=== PATIENT | female | born 1980 | race Caucasian/White ===

== ENCOUNTER 2016-12-13 19:43 | Emergency (ER) | payer MEDICAID ==
[2016-12-13 19:55] VITALS: BP 125/80
--- NOTE | 2016-12-13 20:54 | EDM.PDOC ---
ED HPI ENT - General Chief Complaint: ENT Problem Stated Complaint: THROAT Time Seen by Provider: 12/13/16 20:30 Source of Information: Reports: Patient History Limitations: Reports: No limitations - History of Present Illness INITIAL COMMENTS - FREE TEXT/NARRATIVE: c/o sorethroat and sinus problems since this am, No fever Associated Symptoms: Reports: no other symptoms - Related Data Allergies/ADRs: Allergies Allergy/AdvReac Type Severity Reaction Status Date / Time erythromycin base Allergy Hives Verified 12/13/16 19:56 hydromorphone HCl Allergy Airway Verified 12/13/16 19:56 [From Dilaudid] Tightness meperidine HCl [From Demerol] Allergy Rash Verified 12/13/16 19:56 methylprednisolone sodium Allergy Rash Verified 12/13/16 19:56 succinate [From Solu-Medrol] Penicillins Allergy Rash Verified 12/13/16 19:56 Home Meds: Home Meds Cyclobenzaprine [Flexeril] 10 mg PO Q6H PRN 03/07/16 [History] Hydrocodone/Acetaminophen [Hydrocodon-Acetaminophen 5-325] 1 each PO BID [History] Pantoprazole Sodium [Protonix] 20 mg PO DAILY 03/07/16 [History] Verapamil [Calan SR] 240 mg PO DAILY 03/07/16 [History] carBAMazepine [Carbamazepine] 200 mg PO QID PRN 03/07/16 [History] Cyanocobalamin (Vitamin B12) [Vitamin B12] 1,000 mcg PO DAILY 06/27/16 [History] Ergocalciferol (Vitamin D2) [Vitamin D2] 2,000 unit PO DAILY 06/27/16 [History] Loratadine [Claritin] 10 mg PO DAILY 06/27/16 [History] Past Medical History HEENT History: Reports: Impaired vision Cardiovascular History: Reports: None Respiratory History: Reports: None Gastrointestinal History: Reports: GERD Genitourinary History: Reports: None 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: Musculoskeletal History: Reports: Back pain, chronic Neurological History: Reports: Migraines, Other (see below) Other Neuro History: trigeminal neralgia Psychiatric History: Reports: Depression Endocrine/Metabolic History: Reports: None Hematologic History: Reports: None Immunologic History: Reports: None Oncologic (Cancer) History: Reports: None Dermatologic History: Reports: None - Infectious Disease History Infectious Disease History: Reports: Chicken pox - Past Surgical History HEENT Surgical History: Reports: Naso-sinus surgery Cardiovascular Surgical History: Reports: None Respiratory Surgical History: Reports: None Female Surgical History: Reports: None Social & Family History - Family History Family Medical History: Noncontributory - Tobacco Use Smoking Status *Q: Current Every Day Smoker Years of Tobacco use: 20 Packs/Tins Daily: 20 Used Tobacco, but Quit: No Second Hand Smoke Exposure: Yes - Caffeine Use Caffeine Use: Reports: Soda - Recreational Drug Use Recreational Drug Use: No ED ROS ENT - Review of Systems Review Of Systems: See Below Constitutional: Denies: fever, chills HEENT: Reports: Sinus problem (burning), Throat pain Respiratory: Reports: No Symptoms Cardiovascular: Reports: No symptoms GI/Abdominal: Reports: No symptoms : Reports: no symptoms Musculoskeletal: Reports: no symptoms Skin: Reports: no symptoms Neurological: Reports: No Symptoms ED EXAM, ENT - Physical Exam Exam: See Below Exam Limited By: No limitations General Appearance: alert, no apparent distress Ears: normal external exam, normal canal, normal TMs Nose: normal inspection. No: clear rhinorrhea, nasal discharge Mouth/Throat: Normal inspection Head: atraumatic, normocephalic Neck: normal inspection. No: lymphadenopathy (L), lymphadenopathy (R) Respiratory/Chest: no respiratory distress, lungs clear Cardiovascular: normal peripheral pulses, regular rate, rhythm GI/Abdominal: normal bowel sounds, soft, non tender Extremities: normal inspection, normal range of motion Neurological: alert, oriented, CN II-XII intact, normal cognition Psychiatric: normal affect Skin: Warm, Dry, Intact, Normal color Course - Vital Signs Last Recorded V/S: Last Vital Signs Temp 96.6 F 12/13/16 19:49 Pulse 109 H 12/13/16 19:49 Resp 18 12/13/16 19:49 BP 125/80 12/13/16 19:49 Pulse Ox 100 12/13/16 19:49 - Orders/Labs/Meds Orders: Active Orders 24 hr Category Date Time Status CULTURE STREP A CONFIRMATION [] Stat Lab 12/13/16 19:59 Results STREP SCRN A RAPID W CULT CONF [] Stat Lab 12/13/16 19:59 Results Departure - Departure Time of Disposition: 20:52 Disposition: Home, Self-Care 01 Condition: good Clinical Impression: Pharyngitis Instructions: Upper Respiratory Infection, Adult, [id number] Forms: ED Department Discharge Additional Instructions: alternate tylenol and ibuprofen every 4 hours as needed increase fluid intake humidification salt water gargle as needed follow up 2-3 days if not improving - My Orders Last 24 Hours: My Active Orders 12/13/16 19:59 CULTURE STREP A CONFIRMATION [RM] Stat STREP SCRN A RAPID W CULT CONF [] Stat - Assessment/Plan Last 24 Hours: My Active Orders 12/13/16 19:59 CULTURE STREP A CONFIRMATION [RM] Stat STREP SCRN A RAPID W CULT CONF [RM] Stat
== END 2016-12-13 20:58 | disposition home or self-care (01) ==
LOC: DL.ED 19:43
DX: J02.9 Acute pharyngitis, unspecified (principal); K21.9 Gastro-esophageal reflux disease without esophagitis; F32.9 Major depressive disorder, single episode, unspecified; F17.210 Nicotine dependence, cigarettes, uncomplicated; Z79.899 Other long term (current) drug therapy; Z88.1 Allergy status to other antibiotic agents; Z88.0 Allergy status to penicillin; Z88.5 Allergy status to narcotic agent
CPT/HCPCS: 87081; 87430; 99283

== ENCOUNTER 2017-09-12 19:15 | Emergency (ER) | payer MEDICAID ==
[2017-09-12] MEDS ORDERED: LORazepam 1 MG Tab PO ONE (19:16)
[2017-09-12 19:34] VITALS: BP 117/78
[2017-09-12] MEDS ORDERED: Ketorolac 30 MG/ML SDV IM ONE (19:58)
[2017-09-12] MEDS ORDERED: LORazepam 1 MG Tab ONE (19:59)
--- NOTE | 2017-09-12 20:03 | EDM.PDOC ---
ED HPI GENERAL MEDICAL PROBLEM - General Chief Complaint: Headache Stated Complaint: MIGRAINE 4 DAYS [id number] Time Seen by Provider: 09/12/17 19:59 Source of Information: Reports: Patient History Limitations: Reports: No Limitations - History of Present Illness INITIAL COMMENTS - FREE TEXT/NARRATIVE: states has h/o cluster NARANJO and last time was Tx with IM toradol. denies vomiting. Treatments ASSISTANT GENERAL MANAGER: Reports: Acetaminophen, NSAIDS Headache Pain Score (Numeric/FACES): 8 - Related Data Allergies Allergy/AdvReac Type Severity Reaction Status Date / Time erythromycin base Allergy Hives Verified 09/12/17 19:34 hydromorphone HCl Allergy Airway Verified 09/12/17 19:34 [From Dilaudid] Tightness meperidine HCl [From Demerol] Allergy Rash Verified 09/12/17 19:34 methylprednisolone sodium Allergy Rash Verified 09/12/17 19:34 succinate [From Solu-Medrol] Penicillins Allergy Rash Verified 09/12/17 19:34 Home Meds: Home Meds Cyclobenzaprine [Flexeril] 10 mg PO Q6H PRN 03/07/16 [History] Hydrocodone/Acetaminophen [Hydrocodon-Acetaminophen 5-325] 1 each PO BID [History] Pantoprazole Sodium [Protonix] 20 mg PO DAILY 03/07/16 [History] Verapamil [Calan SR] 240 mg PO DAILY 03/07/16 [History] carBAMazepine [Carbamazepine] 200 mg PO QID PRN 03/07/16 [History] Cyanocobalamin (Vitamin B12) [Vitamin B12] 1,000 mcg PO DAILY 06/27/16 [History] Ergocalciferol (Vitamin D2) [Vitamin D2] 2,000 unit PO DAILY 06/27/16 [History] Loratadine [Claritin] 10 mg PO DAILY 06/27/16 [History] Past Medical History HEENT History: Reports: Impaired Vision Cardiovascular History: Reports: None Respiratory History: Reports: None Gastrointestinal History: Reports: GERD Genitourinary History: Reports: None 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: Musculoskeletal History: Reports: Back Pain, Chronic Neurological History: Reports: Migraines, Other (See Below) Other Neuro History: trigeminal neralgia Psychiatric History: Reports: Depression Endocrine/Metabolic History: Reports: None Hematologic History: Reports: None Immunologic History: Reports: None Oncologic (Cancer) History: Reports: None Dermatologic History: Reports: None - Infectious Disease History Infectious Disease History: Reports: Chicken Pox - Past Surgical History HEENT Surgical History: Reports: Naso-Sinus Surgery Cardiovascular Surgical History: Reports: None Respiratory Surgical History: Reports: None Female Surgical History: Reports: None Social & Family History - Family History Family Medical History: Noncontributory - Tobacco Use Smoking Status *Q: Current Every Day Smoker Years of Tobacco use: 24 Packs/Tins Daily: 30 Used Tobacco, but Quit: No Second Hand Smoke Exposure: Yes - Caffeine Use Caffeine Use: Reports: Soda - Recreational Drug Use Recreational Drug Use: No ED ROS GENERAL - Review of Systems Review Of Systems: ROS reveals no pertinent complaints other than HPI. - Physical Exam Exam: See Below Exam Limited By: No Limitations General Appearance: Alert, WD/WN, Mild Distress, Moderate Distress, Other ( crying) Eye Exam: Bilateral Eye: PERRL (pupils ess ER @ 4mm with photophobia) Ears: Hearing Grossly Normal Throat/Mouth: Normal Voice, No Airway Compromise Head Exam: Atraumatic Neck: Non-Tender, Full Range of Motion Respiratory/Chest: No Respiratory Distress Cardiovascular: Regular Rate, Rhythm GI/Abdominal: Soft, Non-Tender Neuro Exam (Abbreviated): Alert, Oriented, Normal Cognition, Normal Gait, No Motor/Sensory Deficits Psychiatric: Tearful Skin Exam: Warm, Dry, Normal Color Course - Vital Signs Last Recorded V/S: Last Vital Signs Temp 36.2 C 09/12/17 19:24 Pulse 97 09/12/17 19:24 Resp 18 09/12/17 19:24 BP 117/78 09/12/17 19:24 Pulse Ox 97 09/12/17 19:24 - Orders/Labs/Meds Meds: Medications Discontinued Medications Generic Name Dose Route Start Last Admin Trade Name Freq PRN Reason Stop Dose Admin Ketorolac Tromethamine 30 mg 09/12/17 19:58 09/12/17 20:03 Toradol IM 09/12/17 19:59 30 mg ONETIME ONE Administration Lorazepam Confirm 09/12/17 19:59 09/12/17 20:04 Ativan Administered 09/12/17 20:00 Not Given Dose 1 mg .ROUTE .STK-MED ONE Lorazepam 1 mg 09/12/17 19:16 Ativan PO 09/12/17 19:17 .STK-MED ONE Departure - Departure Time of Disposition: 20:15 Disposition: Home, Self-Care 01 Condition: Good Clinical Impression: Cluster headache syndrome - Discharge Information Instructions: General Headache Without Cause, [id number] Referrals: Suzanne Duncan PA-C [Primary Care Provider] - Forms: ED Department Discharge Additional Instructions: 1) rest 2) follow up with family doctor 3) recheck as needed
== END 2017-09-12 20:18 | disposition home or self-care (01) ==
LOC: DL.ED 19:15
DX: G44.009 Cluster headache syndrome, unspecified, not intractable (principal); K21.9 Gastro-esophageal reflux disease without esophagitis; F32.9 Major depressive disorder, single episode, unspecified; F17.210 Nicotine dependence, cigarettes, uncomplicated; Z79.899 Other long term (current) drug therapy; Z88.0 Allergy status to penicillin; Z88.1 Allergy status to other antibiotic agents; Z88.5 Allergy status to narcotic agent; Z88.8 Allergy status to other drugs, medicaments and biological substances
CPT/HCPCS: 96372; 99283; A9270; J1885

== ENCOUNTER 2021-07-01 20:00 | Emergency (ER) | payer MEDICAID ==
[2021-07-01] MEDS ORDERED: Lidocaine 1% 30 ML SDV INJECT ONE (20:51)
[2021-07-01] MEDS ORDERED: Bacitracin Oint 1 GM U/D Packet TOP ONE (20:52)
--- NOTE | 2021-07-01 21:30 | EDM.PDOC ---
<Prabha Amso - Last Filed: 07/01/21 21:58> ED HPI GENERAL MEDICAL PROBLEM - General Chief Complaint: Laceration Stated Complaint: CUT FINGER OPEN Time Seen by Provider: 07/01/21 21:00 Source of Information: Reports: Patient History Limitations: Reports: No Limitations - History of Present Illness INITIAL COMMENTS - FREE TEXT/NARRATIVE: The patient is a 41 year-old female who present to the ED due to a laceration of her left index finger. She reports she was cutting an apple when she accidentally cut her finger. She reports some bleeding and pain. She reports the blade was clean. Her tetanus immunization is up to date. She denies fevers, chills, nausea, vomiting, diarrhea or constipation. - Related Data Allergies Allergy/AdvReac Type Severity Reaction Status Date / Time erythromycin base Allergy Hives Verified 07/01/21 21:24 hydromorphone HCl Allergy Airway Verified 07/01/21 21:24 [From Dilaudid] Tightness meperidine HCl [From Demerol] Allergy Rash Verified 07/01/21 21:24 methylprednisolone sodium Allergy Rash Verified 07/01/21 21:24 succinate [From Solu-Medrol] Home Meds: Home Meds Cyclobenzaprine [Flexeril] 10 mg PO Q6H PRN 03/07/16 [History] Hydrocodone/Acetaminophen [Hydrocodon-Acetaminophen 5-325] 1 each PO BID 03/07/16 [History] Pantoprazole Sodium [Protonix] 20 mg PO DAILY 03/07/16 [History] Verapamil [Calan SR] 240 mg PO DAILY 03/07/16 [History] carBAMazepine [Carbamazepine] 200 mg PO QID PRN 03/07/16 [History] Cyanocobalamin (Vitamin B12) [Vitamin B12] 1,000 mcg PO DAILY 06/27/16 [History] Ergocalciferol (Vitamin D2) [Vitamin D2] 2,000 unit PO DAILY 06/27/16 [History] Loratadine [Claritin] 10 mg PO DAILY 06/27/16 [History] Past Medical History HEENT History: Reports: Impaired Vision Cardiovascular History: Reports: None Respiratory History: Reports: None Gastrointestinal History: Reports: GERD Genitourinary History: Reports: 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: Musculoskeletal History: Reports: Back Pain, Chronic Other Musculoskeletal History: ankylosing spondylitis Neurological History: Reports: Migraines, Other (See Below) Other Neuro History: trigeminal neuralgia Psychiatric History: Reports: Depression Endocrine/Metabolic History: Reports: None Hematologic History: Reports: None Immunologic History: Reports: None Oncologic (Cancer) History: Reports: None Dermatologic History: Reports: None - Infectious Disease History Infectious Disease History: Reports: Chicken Pox - Past Surgical History HEENT Surgical History: Reports: Naso-Sinus Surgery Cardiovascular Surgical History: Reports: None Respiratory Surgical History: Reports: None Female Surgical History: Reports: None Social & Family History - Family History Family Medical History: No Pertinent Family History - Caffeine Use Caffeine Use: Reports: Soda - Living Situation & Occupation Living situation: Reports: with Family ED ROS GENERAL - Review of Systems Review Of Systems: See Below Constitutional: Reports: No Symptoms HEENT: Reports: No Symptoms Respiratory: Reports: No Symptoms Cardiovascular: Reports: No Symptoms Endocrine: Reports: No Symptoms GI/Abdominal: Reports: No Symptoms Musculoskeletal: Reports: No Symptoms Neurological: Reports: No Symptoms Psychiatric: Reports: No Symptoms Immunologic: Reports: No Symptoms ED EXAM, SKIN/RASH Exam: See Below Exam Limited By: No Limitations General Appearance: Alert, WD/WN, No Apparent Distress Ears: Hearing Grossly Normal Nose: Normal Inspection Head: Atraumatic, Normocephalic Neck: Normal Inspection, Supple, Non-Tender, Full Range of Motion Respiratory/Chest: No Respiratory Distress, Lungs Clear, Normal Breath Sounds, N o Accessory Muscle Use, Chest Non-Tender Cardiovascular: Normal Peripheral Pulses, Regular Rate, Rhythm, No Edema, No Gallop, No JVD, No Murmur, No Rub GI/Abdominal: Normal Bowel Sounds, Soft, Non-Tender, No Organomegaly, No Distention, No Mass Back Exam: Normal Inspection, Full Range of Motion, NT Extremities: Normal Inspection, No Pedal Edema Neurological: Alert, Oriented, Normal Cognition, Normal Gait Psychiatric: Normal Affect, Normal Mood Skin: Warm, Dry, Normal Color, No Rash, Wound/Incision (Left index finger on the lateral aspect) ED SKIN PROCEDURES - Laceration/Wound Repair Left Lateral Digit - 2nd (Index) Appearance: Superficial Distal NVT: Neuro & Vascular Intact, No Tendon Injury Anesthetic Type: Local Local Anesthesia - Lidocaine (Xylocaine): 1% Plain Local Anesthetic Volume: 2cc Skin Prep: Isopropyl Alcohol (Alcohol) Exploration/Debridement/Repair: Explored to Base, No Foreign Material Found Closed with: Sutures Lac/Wound length In cm: 1.0 Suture Size: 4-0 Suture Type: Interrupted Tetanus Status Addressed: Yes Complications: No Departure - Departure Time of Disposition: 21:26 Disposition: Home, Self-Care 01 Condition: Good Clinical Impression: Laceration of finger Qualifiers: Encounter type: initial encounter Finger: index finger Damage to nail status: without damage Foreign body presence: without foreign body Laterality: left Qualified Code(s): S61.211A - Laceration without foreign body of left index finger without damage to nail, initial encounter - Discharge Information *PRESCRIPTION DRUG MONITORING PROGRAM REVIEWED*: Not Applicable *COPY OF PRESCRIPTION DRUG MONITORING REPORT IN PATIENT GEETHA: Not Applicable Instructions: Laceration Care, Adult Referrals: PCP,None [Primary Care Provider] - Forms: ED Department Discharge Additional Instructions: Recommend keeping wound clean and dry. Change bandage daily. After 2-3 days, may allow wound to heal open to air. May take Tylenol and/or ibuprofen as needed for pain or swelling. Follow-up with PCP for suture removal in 10-14 days. Return sooner if symptoms develop suggestion infection such as fever, chills, increasing redness, swelling or drainage. <Yamilka Cordoba - Last Filed: 07/02/21 04:06> Course - Orders/Labs/Meds Meds: Medications Discontinued Medications Generic Name Dose Route Start Last Admin Trade Name Timq PRN Reason Stop Dose Admin Bacitracin 1 dose 07/01/21 20:52 07/01/21 21:23 Bacitracin Oint 1 Gm U/D Packet TOP 07/01/21 20:53 1 dose ONETIME ONE Administration Lidocaine HCl 30 ml 07/01/21 20:51 07/01/21 21:23 Lidocaine 1% 30 Ml Sdv INJECT 07/01/21 20:52 30 ml ONETIME ONE Administration - Re-Assessments/Exams Free Text/Narrative Re-Assessment/Exam: 07/01/21 I saw and evaluated the patient. Discussed with resident and agree with residents findings and plan as documented in the residents note.
== END 2021-07-01 22:18 | disposition home or self-care (01) ==
LOC: DL.ED 20:00
DX: S61.211A Laceration without foreign body of left index finger without damage to nail, initial encounter (principal); K21.9 Gastro-esophageal reflux disease without esophagitis; Z88.1 Allergy status to other antibiotic agents; Z88.5 Allergy status to narcotic agent; Z88.8 Allergy status to other drugs, medicaments and biological substances; Z79.899 Other long term (current) drug therapy; W26.8XXA Contact with other sharp object(s), not elsewhere classified, initial encounter
CPT/HCPCS: 12001; 99282-25

== ENCOUNTER 2021-12-15 06:58 | Day surgery (SDC) | payer MEDICAID ==
[~2021-12-15 06:58] MED LIST: Dextrose 5%-0.45% NaCl 1,000 ML IV SCH; Midazolam 1 MG/ML 2 ML SDV ONE; Sodium Chloride 0.9% 10 ML Syringe FLUSH SCH; fentaNYL 100 MCG/2 ML SDV ONE
[2021-12-15] MEDS ORDERED: fentaNYL 100 MCG/2 ML SDV IV ONE ×3 (06:59→08:44)
[2021-12-15] MEDS ORDERED: Midazolam 1 MG/ML 2 ML SDV IV ONE ×3 (06:59→08:45)
[2021-12-15] MEDS ORDERED: Sodium Chloride 0.9% 10 ML Syringe FLUSH PRN (08:12)
[2021-12-15 10:52] VITALS: BP 133/74; PULSE 85
== END 2021-12-15 10:50 | disposition home or self-care (01) ==
LOC: DL.ENDO 06:58
PROVIDERS: ATTEND Internal Medicine Gastroenterology
DX: K31.84 Gastroparesis (principal); Z01.812 Encounter for preprocedural laboratory examination; Z20.822 Contact with and (suspected) exposure to COVID-19
CPT/HCPCS: 87077; J2250; J3010; J7042; U0002

== ENCOUNTER 2022-03-15 10:41 | Emergency (ER) | payer MEDICAID ==
[2022-03-15 11:27] VITALS: BP 142/79; PULSE 81
[2022-03-15 12:02] LABS: ANION GAP 12.9 mEq/L (7-13)
== END 2022-03-15 12:30 | disposition home or self-care (01) ==
LOC: DL.ED 10:41
DX: R07.89 Other chest pain (principal); F17.210 Nicotine dependence, cigarettes, uncomplicated; Z88.1 Allergy status to other antibiotic agents; Z88.6 Allergy status to analgesic agent; Z88.0 Allergy status to penicillin; Z79.899 Other long term (current) drug therapy; Z90.49 Acquired absence of other specified parts of digestive tract; Z20.822 Contact with and (suspected) exposure to COVID-19
CPT/HCPCS: 36415; 71045; 80053; 81003; 83605; 84484; 85025; 87040; 93005; 99285; U0002

== ENCOUNTER 2023-03-28 20:29 | Emergency (ER) | payer MEDICAID ==
[2023-03-28] MEDS ORDERED: Famotidine 20 MG Tab PO ONE (20:48)
[2023-03-28 20:51] VITALS: BP 175/98; PULSE 95
== END 2023-03-28 21:20 | disposition home or self-care (01) ==
LOC: DL.ED 20:29
DX: T63.441A Toxic effect of venom of bees, accidental (unintentional), initial encounter (principal); R20.2 Paresthesia of skin; R03.0 Elevated blood-pressure reading, without diagnosis of hypertension; K21.9 Gastro-esophageal reflux disease without esophagitis; Z88.1 Allergy status to other antibiotic agents; Z88.8 Allergy status to other drugs, medicaments and biological substances; Z79.899 Other long term (current) drug therapy; Z88.5 Allergy status to narcotic agent; Z88.0 Allergy status to penicillin
CPT/HCPCS: 99282; 99283; A9270

== ENCOUNTER 2024-02-01 19:09 | Emergency (ER) | payer MEDICAID | END 2024-02-01 20:28 | disposition left against medical advice (07) | LOC: DL.ED 19:09 | DX: Z53.21 Procedure and treatment not carried out due to patient leaving prior to being seen by health care provider (principal) ==

== ENCOUNTER 2024-05-26 18:54 | Emergency (ER) | payer MEDICAID, OTHER ==
[2024-05-26 19:38] VITALS: BP 123/76; PULSE 88
[2024-05-26 19:39] LABS: HEMATOCRIT 40.9 % (37.0-47.0); HEMOGLOBIN 14.1 g/dL (12.0-16.0); MEAN CORPUSCULAR HEMOGLOBIN 27.1 pg (27.0-34.0); MEAN CORPUSCULAR HGB CONC 34.5 g/dL (33.0-35.0); MEAN CORPUSCULAR VOLUME 78.5 fL (80-100); PLATELET COUNT,PLT 207 10^3/uL (150-450); RED BLOOD CELL COUNT 5.21 10^6/uL (4.2-5.4); WHITE BLOOD CELL COUNT,WBC 11.5 10^3/uL (5.0-10.0)
[2024-05-26 19:40] LABS: BASOPHILS PERCENT AUTO 0.6 % (0.0-1.0); EOSINOPHILS PERCENT AUTO 0.8 % (1.0-3.0); LYMPHOCYTES PERCENT AUTO 12.9 % (20.5-50.1); NEUTROPHILS PERCENT AUTO 80.7 % (42.2-75.2)
[2024-05-26 19:59] LABS: ALBUMIN 3.5 g/dL (3.4-5.0); ANION GAP 11.8 mEq/L (7-13); BILIRUBIN TOTAL 0.3 mg/dL (0.2-1.0); BUN/CREATININE RATIO 9.1 (No establ ref range); CALCIUM 9.3 mg/dL (8.5-10.1); CREATININE 0.88 mg/dL (0.55-1.02); EST CRCL DRUG DOSING (CG) 68.98 mL/min; MAGNESIUM 1.3 mg/dL (1.8-2.4); POTASSIUM,K 3.8 mmol/L (3.5-5.1); PROTEIN TOTAL,TP 6.9 g/dL (6.4-8.2)
[2024-05-26 20:00] LABS: BAND PERCENT MAN 1 %; LYMPHOCYTES PERCENT MAN 14 % (20-50); MONOCYTES PERCENT MAN 4 % (2-8); SEG NEUTROPHILS PERCENT MAN 81 % (42-75)
[2024-05-26] MEDS ORDERED: Sodium Chloride 0.9% 10 ML Syringe FLUSH PRN (20:02)
[2024-05-26 20:11] LABS: AMPHETAMINES,URINE NEGATIVE (NEGATIVE); BARBITURATES,URINE NEGATIVE (NEGATIVE); BENZODIAZEPINE,URINE NEGATIVE (NEGATIVE); MDMA (ECSTASY), URINE NEGATIVE (NEGATIVE); METHADONE,URINE NEGATIVE (NEGATIVE); METHAMPHETAMINES,URINE NEGATIVE (NEGATIVE); OPIATES,URINE NEGATIVE (NEGATIVE); OXYCODONE,URINE POSITIVE (NEGATIVE); PHENCYCLIDINE,URINE NEGATIVE (NEGATIVE); TCA,URINE NEGATIVE (NEGATIVE)
[2024-05-26 20:33] LABS: APPEARANCE,URINE CLEAR (CLEAR); BILIRUBIN,URINE NEGATIVE (NEGATIVE); COLOR,URINE YELLOW (YELLOW); GLUCOSE,URINE NEGATIVE (NEGATIVE); KETONES,URINE NEGATIVE (NEGATIVE); LEUKOCYTE ESTERASE,URINE NEGATIVE (NEGATIVE); NITRITE,URINE NEGATIVE (NEGATIVE); OCCULT BLOOD,URINE NEGATIVE (NEGATIVE); PROTEIN,URINE NEGATIVE (NEGATIVE); UROBILINOGEN,URINE 0.2 mg/dL (0.2-1.0)
[2024-05-26] MEDS: Ondansetron 4 MG/2 ML SDV IVPUSH ONE (20:37)
[2024-05-26] MEDS: Magnesium Sulfate/Water Premix 4 GM in Premix Bag 1 BAG IV ONE (20:42)
[2024-05-26] MEDS: Sodium Chloride 0.9% 1,000 ML IV ONE (20:42)
[2024-05-26] MEDS: Ibuprofen 800 MG Tab PO ONE (21:38)
[2024-05-26] MEDS: Acetaminophen/oxyCODONE 325-5 MG Tab PO ONE (22:02)
== END 2024-05-26 22:45 | disposition home or self-care (01) ==
LOC: DL.ED 18:54
DX: F11.20 Opioid dependence, uncomplicated (principal); E87.1 Hypo-osmolality and hyponatremia; E83.42 Hypomagnesemia; E87.8 Other disorders of electrolyte and fluid balance, not elsewhere classified; R25.2 Cramp and spasm; E78.00 Pure hypercholesterolemia, unspecified; K21.9 Gastro-esophageal reflux disease without esophagitis; Z90.49 Acquired absence of other specified parts of digestive tract; Z79.899 Other long term (current) drug therapy; Z88.1 Allergy status to other antibiotic agents; Z88.5 Allergy status to narcotic agent; Z88.0 Allergy status to penicillin; Z88.8 Allergy status to other drugs, medicaments and biological substances
CPT/HCPCS: 36415; 71045; 80053; 80305; 81003; 81025; 83735; 84484; 85025; 87635; 87804; 93005; 96365; 96366; 96375; 99285; A9270; J2405; J3475; J7030; 93010; 99284; U0002

== ENCOUNTER 2024-08-07 21:12 | Emergency (ER) | payer MEDICAID, OTHER ==
[2024-08-07] MEDS: Sodium Chloride 0.9% 1,000 ML IV ONE (22:00)
[2024-08-07] MEDS: Metoclopramide 10 MG/2 ML SDV IVPUSH ONE (22:00)
[2024-08-07 22:11] LABS: HEMATOCRIT 37.1 % (37.0-47.0); HEMOGLOBIN 12.9 g/dL (12.0-16.0); LYMPHOCYTES PERCENT AUTO 17.3 % (20.5-50.1); MEAN CORPUSCULAR HGB CONC 34.8 g/dL (33.0-35.0); MEAN CORPUSCULAR VOLUME 80.5 fL (80-100); MONOCYTES PERCENT AUTO 7.3 % (2-8); NEUTROPHILS PERCENT AUTO 72.4 % (42.2-75.2); PLATELET COUNT,PLT 222 10^3/uL (150-450); RED BLOOD CELL COUNT 4.61 10^6/uL (4.2-5.4); WHITE BLOOD CELL COUNT,WBC 10.5 10^3/uL (5.0-10.0)
[2024-08-07 23:02] LABS: LACTIC ACID 1.4 mmol/L (0.4-2.0)
[2024-08-07 23:08] LABS: ALANINE AMINOTRANSFERASE,ALT 23 U/L (14-59); ALBUMIN 2.8 g/dL (3.4-5.0); ALKALINE PHOSPHATASE 84 U/L (46-116); ASPARTATE AMNIOTRANSFERASE,AST 11 U/L (15-37); BILIRUBIN TOTAL 0.2 mg/dL (0.2-1.0); BLOOD UREA NITROGEN,BUN 5 mg/dL (7-18); CALCIUM 7.9 mg/dL (8.5-10.1); CARBON DIOXIDE,CO2 27 mmol/L (21-32); CHLORIDE,CL 90 mmol/L (98-107); CREATININE 0.71 mg/dL (0.55-1.02); EST CRCL DRUG DOSING (CG) 85.49 mL/min; GLUCOSE RANDOM 97 mg/dL (70-99); LIPASE 18 U/L (16-77); MAGNESIUM 1.5 mg/dL (1.8-2.4); PROTEIN TOTAL,TP 5.8 g/dL (6.4-8.2); SODIUM,NA 124 mmol/L (136-145); TSH ULTRASENSITIVE 1.29 uIU/mL (0.36-3.74)
[2024-08-07 23:09] LABS: A/G RATIO 0.93; ESTIMATED GFR 106 mL/min (>=60); ETHANOL BLOOD MEDICAL < 3 mg/dL (0)
[2024-08-07] MEDS: Magnesium Sulfate/Water Premix 2 GM in Premix Bag 1 BAG IV ONE (23:36)
[2024-08-07] MEDS: Sodium Chloride 0.9% 1,000 ML IV SCH (23:36)
[2024-08-08 00:03] LABS: ANION GAP 11.2 mEq/L (7-13); CREATININE 0.68 mg/dL (0.55-1.02); EST CRCL DRUG DOSING (CG) 89.27 mL/min; POTASSIUM,K 4.2 mmol/L (3.5-5.1)
[2024-08-08 00:44] VITALS: BP 122/79; PULSE 73
== END 2024-08-08 00:45 | disposition home or self-care (01) ==
LOC: DL.ED 21:12
DX: E87.1 Hypo-osmolality and hyponatremia (principal); E83.42 Hypomagnesemia; E78.00 Pure hypercholesterolemia, unspecified; K21.9 Gastro-esophageal reflux disease without esophagitis; Z90.49 Acquired absence of other specified parts of digestive tract; Z88.0 Allergy status to penicillin; Z88.1 Allergy status to other antibiotic agents; Z88.5 Allergy status to narcotic agent; Z88.8 Allergy status to other drugs, medicaments and biological substances; Z79.84 Long term (current) use of oral hypoglycemic drugs; Z79.899 Other long term (current) drug therapy
CPT/HCPCS: 36415; 71045; 80048; 80053; 80307; 82375; 83605; 83690; 83735; 84443; 84484; 85025; 87428; 93005; 96361; 96365; 96375; 99284; J2765; J3475; J7030

== ENCOUNTER 2024-09-14 11:40 | Emergency (ER) | payer MEDICAID ==
[2024-09-14] MEDS: Albuterol/Ipratropium 3.0-0.5 MG/3 ML Neb Soln NEB ONE (12:00)
[2024-09-14 12:06] LABS: BASOPHILS PERCENT AUTO 0.9 % (0.0-1.0); EOSINOPHILS PERCENT AUTO 0.2 % (1.0-3.0); HEMATOCRIT 37.5 % (37.0-47.0); HEMOGLOBIN 12.2 g/dL (12.0-16.0); LYMPHOCYTES PERCENT AUTO 13.7 % (20.5-50.1); MEAN CORPUSCULAR HEMOGLOBIN 28.1 pg (27.0-34.0); MEAN CORPUSCULAR HGB CONC 32.5 g/dL (33.0-35.0); MEAN CORPUSCULAR VOLUME 86.4 fL (80-100); MONOCYTES PERCENT AUTO 5.7 % (2-8); NEUTROPHILS PERCENT AUTO 79.5 % (42.2-75.2); PLATELET COUNT,PLT 211 10^3/uL (150-450); RED BLOOD CELL COUNT 4.34 10^6/uL (4.2-5.4); WHITE BLOOD CELL COUNT,WBC 13.4 10^3/uL (5.0-10.0)
[2024-09-14 12:32] LABS: ALANINE AMINOTRANSFERASE,ALT 24 U/L (14-59); ALBUMIN 3.1 g/dL (3.4-5.0); ALKALINE PHOSPHATASE 86 U/L (46-116); ANION GAP 12.5 mEq/L (7-13); ASPARTATE AMNIOTRANSFERASE,AST 10 U/L (15-37); BILIRUBIN TOTAL 0.2 mg/dL (0.2-1.0); BLOOD UREA NITROGEN,BUN 10 mg/dL (7-18); BUN/CREATININE RATIO 11.6 (No establ ref range); CALCIUM 8.5 mg/dL (8.5-10.1); CARBON DIOXIDE,CO2 29 mmol/L (21-32); CHLORIDE,CL 97 mmol/L (98-107); CREATININE 0.86 mg/dL (0.55-1.02); EST CRCL DRUG DOSING (CG) 73.55 mL/min; GLUCOSE RANDOM 129 mg/dL (70-99); MAGNESIUM 1.7 mg/dL (1.8-2.4); POTASSIUM,K 3.5 mmol/L (3.5-5.1); PROTEIN TOTAL,TP 6.3 g/dL (6.4-8.2); SODIUM,NA 135 mmol/L (136-145)
[2024-09-14 12:39] LABS: A/G RATIO 0.97; C-REACTIVE PROTEIN < 0.50 ng/dL (<=0.50); ESTIMATED GFR 84 mL/min (>=60)
[2024-09-14 12:54] VITALS: BP 144/59; PULSE 95
== END 2024-09-14 12:50 | disposition home or self-care (01) ==
LOC: DL.ED 11:40
DX: J18.9 Pneumonia, unspecified organism (principal); E78.00 Pure hypercholesterolemia, unspecified; K21.9 Gastro-esophageal reflux disease without esophagitis; Z90.49 Acquired absence of other specified parts of digestive tract; Z88.1 Allergy status to other antibiotic agents; Z88.5 Allergy status to narcotic agent; Z88.8 Allergy status to other drugs, medicaments and biological substances; Z88.0 Allergy status to penicillin; Z79.84 Long term (current) use of oral hypoglycemic drugs; Z79.899 Other long term (current) drug therapy
CPT/HCPCS: 36415; 71046; 80053; 83735; 84484; 85025; 86140; 93005; 94640; 99285; J7620-GY

== ENCOUNTER 2024-10-20 17:15 | Emergency (ER) | payer MEDICAID ==
[2024-10-20] MEDS ORDERED: Sodium Chloride 0.9% 10 ML Syringe FLUSH PRN (17:30)
[2024-10-20 17:38] VITALS: BP 131/62; PULSE 98
[2024-10-20] MEDS: traMADol 50 MG Tab PO ONE (17:55)
[2024-10-20 17:59] LABS: BASOPHILS PERCENT AUTO 0.9 % (0.0-1.0); EOSINOPHILS PERCENT AUTO 3.1 % (1.0-3.0); HEMATOCRIT 41.6 % (37.0-47.0); HEMOGLOBIN 14.2 g/dL (12.0-16.0); MEAN CORPUSCULAR HEMOGLOBIN 29.4 pg (27.0-34.0); MEAN CORPUSCULAR HGB CONC 34.1 g/dL (33.0-35.0); MEAN CORPUSCULAR VOLUME 86.1 fL (80-100); MONOCYTES PERCENT AUTO 12.1 % (2-8); NEUTROPHILS PERCENT AUTO 63.9 % (42.2-75.2); PLATELET COUNT,PLT 190 10^3/uL (150-450); RED BLOOD CELL COUNT 4.83 10^6/uL (4.2-5.4); WHITE BLOOD CELL COUNT,WBC 5.9 10^3/uL (5.0-10.0)
[2024-10-20 18:20] LABS: ALANINE AMINOTRANSFERASE,ALT 22 U/L (14-59); ALBUMIN 3.5 g/dL (3.4-5.0); ALKALINE PHOSPHATASE 105 U/L (46-116); ASPARTATE AMNIOTRANSFERASE,AST 11 U/L (15-37); BILIRUBIN TOTAL 0.2 mg/dL (0.2-1.0); BLOOD UREA NITROGEN,BUN 9 mg/dL (7-18); BUN/CREATININE RATIO 9.6 (No establ ref range); CALCIUM 9.1 mg/dL (8.5-10.1); CARBON DIOXIDE,CO2 29 mmol/L (21-32); CHLORIDE,CL 94 mmol/L (98-107); CREATININE 0.94 mg/dL (0.55-1.02); GLUCOSE RANDOM 104 mg/dL (70-99); MAGNESIUM 1.7 mg/dL (1.8-2.4); SODIUM,NA 132 mmol/L (136-145)
[2024-10-20 18:35] LABS: ESTIMATED GFR 76 mL/min (>=60)
== END 2024-10-20 19:24 | disposition home or self-care (01) ==
LOC: DL.ED 17:15
DX: U07.1 COVID-19 (principal); R07.89 Other chest pain; E78.00 Pure hypercholesterolemia, unspecified; Z88.0 Allergy status to penicillin; Z88.1 Allergy status to other antibiotic agents; Z88.8 Allergy status to other drugs, medicaments and biological substances; Z79.84 Long term (current) use of oral hypoglycemic drugs; Z79.899 Other long term (current) drug therapy; Z86.16 Personal history of COVID-19; Z90.49 Acquired absence of other specified parts of digestive tract
CPT/HCPCS: 36415; 71045; 80053; 83735; 84484; 85025; 93005; 99285; A9270-GY

== ENCOUNTER 2025-05-04 20:52 | Emergency (ER) | payer MEDICAID ==
[2025-05-04] MEDS ORDERED: Sodium Chloride 0.9% 10 ML Syringe FLUSH PRN (21:44)
[2025-05-04 21:58] LABS: BASOPHILS PERCENT AUTO 0.9 % (0.0-1.0); EOSINOPHILS PERCENT AUTO 1.4 % (1.0-3.0); LYMPHOCYTES PERCENT AUTO 16.6 % (20.5-50.1); MONOCYTES PERCENT AUTO 6.1 % (2-8); NEUTROPHILS PERCENT AUTO 75.0 % (42.2-75.2); PLATELET COUNT,PLT 246 10^3/uL (150-450); RED BLOOD CELL COUNT 5.04 10^6/uL (4.2-5.4); WHITE BLOOD CELL COUNT,WBC 10.4 10^3/uL (5.0-10.0)
[2025-05-04 22:20] LABS: A/G RATIO 0.9; ALANINE AMINOTRANSFERASE,ALT 45.0 U/L (14-59); ASPARTATE AMNIOTRANSFERASE,AST 20.0 U/L (15-37); BILIRUBIN TOTAL 0.1 mg/dL (0.2-1.0); BLOOD UREA NITROGEN,BUN 7.0 mg/dL (7-18); CARBON DIOXIDE,CO2 27.0 mmol/L (21-32); CHLORIDE,CL 92.0 mmol/L (98-107); CREATININE 0.69 mg/dL (0.55-1.02); EST CRCL DRUG DOSING (CG) 87.04 mL/min; GLUCOSE RANDOM 131.0 mg/dL (70-99); POTASSIUM,K 3.9 mmol/L (3.5-5.1); PROTEIN TOTAL,TP 7.6 g/dL (6.4-8.2); SODIUM,NA 127.0 mmol/L (136-145)
[2025-05-04 22:21] LABS: ESTIMATED GFR 108.0 mL/min (>=60)
[2025-05-04 23:09] VITALS: BP 120/73; PULSE 99
== END 2025-05-04 22:59 | disposition home or self-care (01) ==
LOC: DL.ED 20:52
DX: R06.02 Shortness of breath (principal); E78.00 Pure hypercholesterolemia, unspecified; K21.9 Gastro-esophageal reflux disease without esophagitis; F17.210 Nicotine dependence, cigarettes, uncomplicated; Z88.1 Allergy status to other antibiotic agents; Z88.5 Allergy status to narcotic agent; Z88.0 Allergy status to penicillin; Z79.899 Other long term (current) drug therapy; Z79.84 Long term (current) use of oral hypoglycemic drugs; Z86.16 Personal history of COVID-19
CPT/HCPCS: 36415; 71046; 80053; 85025; 99285; J7620; A9270-GY